=== PATIENT | female | born 1970 | race Caucasian/White ===

== ENCOUNTER 2017-11-03 14:15 | Emergency (ER) | payer OTHER ==
[~2017-11-03] VITALS: Ht 160 cm; Wt 90.7 kg
[~2017-11-03 14:15] MED LIST: ZEBUTAL CAPSULE1 CAP PO
== END 2017-11-03 18:54 | disposition home or self-care (01) ==
LOC: ER 14:15
DX: M75.52 Bursitis of left shoulder (principal); M77.12 Lateral epicondylitis, left elbow